=== PATIENT | female | born 1965 | race African-American/Black ===

== ENCOUNTER 2021-04-16 18:54 | Emergency (ER) | payer OTHER ==
[~2021-04-16] VITALS: Ht 162.6 cm; Wt 90.7 kg
[2021-04-16] MEDS ORDERED: ONDANSETRON ODT4 MG PO ×2 (21:19→21:54)
[2021-04-16 21:23] LABS: HEMATOCRIT 35.7 % (37.0-47.0); HEMOGLOBIN 11.8 gm/dL (12.0-15.0); MCH 29.1 pg (26.0-34.0); MCV 88.3 fL (80.0-100.0); RBC 4.05 mil/uL (4.20-5.00); WBC 3.6 thou/uL (4.0-11.0)
[2021-04-16 21:39] LABS: CALCIUM 8.4 mg/dL (8.5-10.1); CREATININE 1.7 mg/dL (0.6-1.0); POTASSIUM 3.5 mmol/L (3.5-5.1)
[2021-04-16] MEDS ORDERED: ZPAK PO ×2 (21:53→21:54)
[2021-04-17 00:30] VITALS: BP 122/75
== END 2021-04-17 00:30 | disposition home or self-care (01) ==
LOC: ER 18:54
PROVIDERS: Physician Assistant
DX: U07.1 COVID-19 (principal); J12.82 Pneumonia due to coronavirus disease 2019; R11.2 Nausea with vomiting, unspecified; I10 Essential (primary) hypertension; F32.9 Major depressive disorder, single episode, unspecified; F41.9 Anxiety disorder, unspecified